=== PATIENT | female | born 1985 | race Caucasian/White ===

== ENCOUNTER 2017-02-27 19:37 | Observation (INO) | payer OTHER ==
[~2017-02-27 19:37] MED LIST: IV RINGERS,LACTATED 1000ML 1,000 ML IV SCH
[2017-02-27 20:10] LABS: BILIRUBIN,URINE NEGATIVE (NEG); GLUCOSE,URINE NEGATIVE (NEG); NITRITE,URINE NEGATIVE (NEG); PROTEIN,URINE NEGATIVE (NEG-TRACE); UROBILINOGEN,URINE 0.2 mg/dL (0.2 mg/dL)
[2017-02-27 20:16] LABS: BARBITURATES NEG (NEG); BENZODIAZEPINES NEG (NEG); CANNABINOIDS NEG (NEG); COCAINE NEG (NEG); METHADONE NEG (NEG); OPIATES NEG (NEG); PHENCYCLIDINE NEG (NEG)
[2017-02-27 20:17] LABS: BACTERIA,URINE FEW /HPF (0-FEW); SQUAMOUS EPITHELIAL CELL,UR FEW /LPF; WBC,URINE OCC /HPF (0-4)
== END 2017-02-27 20:46 | disposition home or self-care (01) ==
LOC: 3 SO LND 19:37
PROVIDERS: ADMIT Obstetrics & Gynecology; ATTEND Obstetrics & Gynecology
DX: O26.853 Spotting complicating pregnancy, third trimester (principal); Z3A.31 31 weeks gestation of pregnancy
CPT/HCPCS: 80307; 81001; G0378; G0379; G0479

== ENCOUNTER 2019-06-08 22:43 | Emergency (ER) | payer OTHER ==
[2019-06-08 22:50] VITALS: BP 132/74
--- NOTE | 2019-06-08 23:18 | PHYS DOC ---
Past Medical History Alcohol Use: Occasionally Adult General Chief Complaint Chief Complaint: GENERALIZED BODY ACHES HPI HPI Patient is a 33 year old female who presents to the ED today complaining of sore throat, nasal congestion, chills, fever, symptoms for 1 month. Patient states she was seen at urgent care some time this evening and was discharged with Augmentin and Flonase nasal spray. She states she did not use any of the Augmentin because she is so somewhere it causes nausea and vomiting. She is in the ED demanding pain medicine. She states she cannot deal with the symptoms, she reports her own doctors at home with an ear infection. Review of Systems Review of Systems Constitutional: Reports fever Eyes: Denies change in visual acuity, redness, or eye pain [] HENT: Reports nasal congestion and sore throat Respiratory: Denies cough or shortness of breath [] Cardiovascular: No additional information not addressed in HPI [] GI: Denies abdominal pain, nausea, vomiting, bloody stools or diarrhea [] : Denies dysuria or hematuria [] Musculoskeletal: Denies back pain or joint pain [] Integument: Denies rash or skin lesions [] Neurologic: Denies headache, focal weakness or sensory changes [] All other systems were reviewed and found to be within normal limits, except as documented in this note. Current Medications Current Medications Current Medications Medications (Trade) Dose Ordered Sig/Deanne Start Time Stop Time Status Last Admin Dose Admin Acetaminophen/ Hydrocodone Bitart (Lortab 5/325) 1 tab 1X ONCE 06/08/19 23:30 06/08/19 23:31 06/08/19 23:21 1 TAB Ibuprofen (Motrin) 600 mg 1X ONCE 06/08/19 23:30 06/08/19 23:31 06/08/19 23:21 600 MG Ondansetron HCl (Zofran Odt) 4 mg 1X ONCE 06/08/19 23:30 06/08/19 23:31 06/08/19 23:21 4 MG Allergies Allergies Allergies Coded Allergies Type Severity Reaction Last Updated Verified No Known Drug Allergies 02/27/17 No Physical Exam Physical Exam Constitutional: Well developed, well nourished, no acute distress, non-toxic appearance. [] HENT: Normocephalic, atraumatic, bilateral external ears normal, oropharynx moist, no oral exudates, nose normal. [] Airway is open, midline uvula, +2 tonsils with mild erythema no exudate +2 anterior cervical adenopathy Eyes: PERRLA, EOMI, conjunctiva normal, no discharge. [] Neck: Normal range of motion, no tenderness, supple, no stridor. [] Cardiovascular:Heart rate regular rhythm, no murmur [] Lungs & Thorax: Bilateral breath sounds clear to auscultation [] Abdomen: Bowel sounds normal, soft, no tenderness, no masses, no pulsatile masses. [] Skin: Warm, dry, no erythema, no rash. [] Back: No tenderness, no CVA tenderness. [] Extremities: No tenderness, no cyanosis, no clubbing, ROM intact, no edema. [] Neurologic: Alert and oriented X 3, normal motor function, normal sensory function, no focal deficits noted. [] Psychologic: appears angry Current Patient Data Vital Signs Vital Signs Date Time Temp Pulse Resp B/P (MAP) Pulse Ox O2 Delivery O2 Flow Rate FiO2 06/08/19 23:21 Room Air 06/08/19 22:50 101.0 131 12 132/74 (93) 95 101.0 EKG EKG [] Radiology/Procedures Radiology/Procedures [] Course & Med Decision Making Course & Med Decision Making Pertinent Labs and Imaging studies reviewed. (See chart for details) This is a 33-year-old female patient presenting to the ED today complaining of a sore throat, subjective fevers, nasal congestion and chills for 1 month. Patient was seen at urgent care today and was diagnosed with sinusitis, she was given prescription for Flonase and Augmentin. She reports she cannot take the Augmentin because she read it can cause nausea. She states she cannot deal with her pain anymore and would like a pain medicine right now. Informed patient we do not prescribe pain medicine for sinusitis, she is running a fever, informed patient could have influenza. She stated she does not want to be tested because she doesn't want to take anymore medicines She was discharged back to home. Given prescription for prednisone. Prescription for Zofran. Provided ENT for follow-up. Dragon Disclaimer Dragon Disclaimer This electronic medical record was generated, in whole or in part, using a voice recognition dictation system. Departure Departure Impression: Primary Impression: Fever Additional Impressions: Body aches Sore throat Nasal congestion Disposition: 01 HOME, SELF-CARE Condition: STABLE Referrals: NO PCP (PCP) follow up in with the provided in one week or your own doctor AMIRA GODFREY MD Patient Instructions: Fever, Adult, [id number] Additional Instructions: You were evaluated in the emergency room, we encouraged her to take the prescribed medicine you got from urgent care. Please consider taking Tylenol/Motrin for pain or fever. We wrote a prescription for prednisone, it will also help with some of your symptoms and zofran for nausea or vomtiing. We provided you an ENT, follow-up with them in the next 1 week. Scripts Prednisone (PREDNISONE) 50 Mg Tablet 1 TAB PO DAILY, #5 TAB Prov: RICHMOND MCCOY APRN 06/08/19 Ondansetron (ONDANSETRON ODT) 4 Mg Tab.rapdis 1 TAB PO PRN Q6-8HRS, #16 TAB Prov: RICHMOND MCCOY [employer] 06/08/19 Problem Qualifiers Primary Impression: Fever Fever type: unspecified Qualified Codes: R50.9 - Fever, unspecified RICHMOND MCCOY [employer] Jun 08, 2019 23:18
[2019-06-08] MEDS ORDERED: ONDA4TAB12 PO (23:22)
[2019-06-08] MEDS ORDERED: PRED50TA PO (23:22)
[2019-06-08] MEDS ORDERED: HYDROcodone/APAP 5/325MG 1 TAB TABLET PO ONE (23:30)
[2019-06-08] MEDS ORDERED: IBUPROFEN 200 MG TABLET. PO ONE (23:30)
[2019-06-08] MEDS ORDERED: ONDANSETRON ODT 4 MG TAB.RAPDIS. PO ONE (23:30)
== END 2019-06-08 23:27 | disposition home or self-care (01) ==
LOC: ER 22:43
DX: J02.9 Acute pharyngitis, unspecified (principal); R50.9 Fever, unspecified; R09.81 Nasal congestion; M79.10 Myalgia, unspecified site
CPT/HCPCS: 99284; Q0162